=== PATIENT | female | born 1970 | race Caucasian/White ===

== ENCOUNTER 2017-05-17 05:17 | Day surgery (SDC) | payer BC ==
[~2017-05-17 05:17] MED LIST: CALCIUM 500 +1 EAC9 PO; FIBER CHOICE; LEVOTHYROXINE75 MC3 PO; MULTIVITAMINS1 EAC6 PO; ORAL CONTRACEPTIVE PO; OS-CAL 500+D CA1 TAB; PRILOSEC OTC20 M1 PO; SPRINTEC1 TAB; VITAMIN D1000 UNI2 PO; WOMENS MULTIPLE1 TAB; ZYRTEC10 M7 PO
[2017-05-17 06:26] LABS: HCT-HEMATOCRIT 38.6 % (34.0-49.0); HGB-HEMOGLOBIN 13.4 gm/dl (12.0-15.5); MCV (MEAN CELL VOLUME) 88.3 fl (82.0-96.0); RED CELL DISTRIBUTION WIDTH 12.8 % (12.4-16.4)
== END 2017-05-17 11:37 ==
LOC: SRG 05:17 → SHSA 05:18 → ORW 07:18 → PACU 08:40 → SHSA 09:30
PROVIDERS: Anesthesiology
PROC: 0FT44ZZ Resection of Gallbladder, Percutaneous Endoscopic Approach (ICD-10-PCS; principal; 2017-05-17)
DX: K81.1 Chronic cholecystitis (principal); E78.5 Hyperlipidemia, unspecified; K21.9 Gastro-esophageal reflux disease without esophagitis; E03.9 Hypothyroidism, unspecified; E55.9 Vitamin D deficiency, unspecified; Z79.899 Other long term (current) drug therapy; Z87.891 Personal history of nicotine dependence; Z90.89 Acquired absence of other organs; Z98.890 Other specified postprocedural states
CPT/HCPCS: J0690; J1170; J1200; J2405; J3010; J7030